=== PATIENT | male | born 1990 | race Caucasian/White ===

== ENCOUNTER 2018-09-29 08:38 | Outpatient (CLI) | payer MEDICARE | END 2018-09-29 08:39 | disposition home or self-care (01) | LOC: CARDIO 08:38 ==

== ENCOUNTER 2018-10-01 12:16 | Emergency (ER) | payer MEDICARE, MEDICAID ==
[2018-10-01 12:27] VITALS: TEMP 98.7; BMI 22.7
[2018-10-01 13:05] LABS: HEMOGLOBIN 15.3 g/dL (14.0-18.0); LYMPH # 1.5 (1.2-3.4); LYMPH % 34.1 % (22.0-35.0); MEAN CELL VOLUME 91.7 fl (80.0-105.0); MEAN CORPUSCULAR HGB CONC 33.8 g/dl (31.0-37.0); MEAN PLATELET VOLUME 11.9 fl (7.0-11.0); MONO # 0.2 (0.1-0.6); MONO % 4.4 % (1.0-6.0); RBC 4.94 10^6/uL (3.5-6.1); RED CELL DISTRIBUTION WIDTH 13.4 % (11.5-14.5); WHITE BLOOD COUNT 4.5 10^3/uL (4.5-11.0)
--- NOTE | 2018-10-01 13:11 | ED PDOC ---
Arrival/HPI - General Chief Complaint: Shortness Of Breath Time Seen by Provider: 10/01/18 12:29 Historian: Patient - History of Present Illness Narrative History of Present Illness (Text): 10/01/18 12:29 Indra Lutz is a 28 year old male, with a past medical history of hypothyroidism (on levothyroxine), sent to the emergency department by Dr. Simpson for pleuritic chest pain since yesterday. Patient notes associated shortness of breath. Pt currently denies chest pain in the ED. Patient denies drug abuse, falls, trauma, back pain, neck pain, heavy lifting, recent travels, fevers, chills, headaches, dizziness, abdominal pain, nausea, vomiting, diarrhea, dysuria, hematuria, or any other complaints. Time/Duration: 24 hours Symptom Onset: Sudden Symptom Course: Unchanged Activities at Onset: Light Context: Home Past Medical History - Provider Review Nursing Documentation Reviewed: Yes - Infectious Disease Hx of Infectious Diseases: None - Tetanus Immunization Tetanus Immunization: Unknown, Up to Date - Cardiac Hx Pacemaker: No - Endocrine/Metabolic Hx Hypothyroidism: Yes - Hematological/Oncological Hx Blood Transfusions: No Hx Blood Transfusion Reaction: No - Musculoskeletal/Rheumatological Hx Musculoskeletal Disorders: No - Gastrointestinal Hx Gastroesophageal Reflux: Yes - Psychiatric Hx Depression: No Hx Emotional Abuse: No Hx Physical Abuse: No Hx Substance Use: No - Surgical History Hx Inguinal Hernia Repair: Yes - Anesthesia Hx Anesthesia: No Hx Anesthesia Reactions: No Hx Malignant Hyperthermia: No - Suicidal Assessment Feels Threatened In Home Enviroment: No Family/Social History - Physician Review Nursing Documentation Reviewed: Yes Family/Social History: Unknown Family HX Smoking Status: Never Smoked Hx Alcohol Use: No Hx Substance Use: No Hx Substance Use Treatment: No Allergies/Home Meds Allergies/Adverse Reactions: Allergies No Known Allergies Allergy (Verified 01/21/13 09:33) Home Medications: Home Meds Medication Instructions Recorded Confirmed Levothyroxine Sodium [Synthroid] 0.2 mg PO DAILY 01/21/13 11/04/13 Review of Systems - Review of Systems Constitutional: absent: Fatigue, Fevers, Other (chills) ENT: absent: Hearing Changes Respiratory: absent: SOB, Cough, Sputum Cardiovascular: Chest Pain (pleuritic). absent: Palpitations, Edema, Calf Pain, Orthopnea, Syncope Gastrointestinal: absent: Abdominal Pain, Constipation, Diarrhea, Nausea, Vomiting Genitourinary Male: absent: Dysuria, Hematuria Musculoskeletal: absent: Back Pain, Neck Pain, Other (falls, trauma, heavy lifting) Neurological: absent: Headache, Dizziness Psychiatric: absent: Anxiety, Depression Physical Exam Vital Signs Reviewed: Yes Vital Signs Temp Pulse Resp BP Pulse Ox 10/01/18 12:45 19 98 10/01/18 12:27 98.7 F 58 L 18 132/69 95 Temperature: Afebrile Blood Pressure: Normal Pulse: Regular Respiratory Rate: Normal Appearance: Positive for: Well-Appearing, Non-Toxic, Comfortable Pain Distress: None Mental Status: Positive for: Alert and Oriented X 3 - Systems Exam Head: Present: Atraumatic, Normocephalic Pupils: Present: PERRL Extroacular Muscles: Present: EOMI Conjunctiva: Present: Normal Mouth: Present: Moist Mucous Membranes Neck: Present: Normal Range of Motion Respiratory/Chest: Present: Clear to Auscultation, Good Air Exchange. No: Respiratory Distress, Accessory Muscle Use, Wheezes, Rales, Rhonchi Cardiovascular: Present: Regular Rate and Rhythm, Normal S1, S2. No: Murmurs, Rub, Gallop Abdomen: Present: Normal Bowel Sounds. No: Tenderness, Distention, Peritoneal Signs, Rebound, Guarding Back: Present: Normal Inspection Upper Extremity: Present: Other (clubbing to fingers) Lower Extremity: Present: Normal Inspection. No: Edema Neurological: Present: GCS=15, CN II-XII Intact, Speech Normal Skin: Present: Warm, Dry, Normal Color. No: Rashes Psychiatric: Present: Alert, Oriented x 3, Normal Insight, Normal Concentration Medical Decision Making ED Course and Treatment: 10/01/18 13:13 EKG shows sinus bradycardia at 59bpm with sinus arrhythmia. Early repolarizati on. Dr. Simpson called and requesting CTA chest to r/o dissection or hereditary abnormality. Requesting observation to tele under his name for further evaluation 10/01/18 13:14 Cxray negative 10/01/18 13:35 CTA negative. - RAD Interpretation Radiology Orders: 10/01/18 12:42 CHEST TWO VIEWS (PA/LAT) [RAD] Stat - EKG Interpretation Interpreted by ED Physician: Yes Type: 12 lead EKG - Medication Orders Current Medication Orders: Discontinued Medications Aspirin (Aspirin Chewable) 324 mg PO STAT STA Stop: 10/01/18 12:47 - Scribe Statement The provider has reviewed the documentation as recorded by the Scribe Davide Vaughn All medical record entries made by the Scribe were at my direction and personally dictated by me. I have reviewed the chart and agree that the record accurately reflects my personal performance of the history, physical exam, medical decision making, and the department course for this patient. I have also personally directed, reviewed, and agree with the discharge instructions and disposition. Disposition/Present on Arrival - Present on Arrival Any Indicators Present on Arrival: No History of DVT/PE: No History of Uncontrolled Diabetes: No Urinary Catheter: No History of Decub. Ulcer: No History Surgical Site Infection Following: None - Disposition Have Diagnosis and Disposition been Completed?: Yes Diagnosis: Chest pain, Pleuritic chest pain Disposition: HOSPITALIZED Disposition Time: 13:13 Patient Plan: Observation Condition: FAIR
--- NOTE | 2018-10-01 13:16 | RAD ---
HISTORY: chest pain COMPARISON: Chest x-ray performed 02/24/12 TECHNIQUE: Chest PA and lateral, 2 views FINDINGS: LUNGS: No focal consolidation. Please note that chest x-ray has limited sensitivity for the detection of pulmonary masses. PLEURA: No significant pleural effusion identified. No definite pneumothorax . CARDIOVASCULAR: Heart size appears within normal limits. OSSEOUS STRUCTURES: No acute osseous abnormality identified. VISUALIZED UPPER ABDOMEN: Unremarkable. OTHER FINDINGS: None. IMPRESSION: No acute findings.
[2018-10-01 13:19] LABS: ALB/GLOB RATIO 1.6 (1.1-1.8); ALBUMIN 4.6 g/dL (3.0-4.8); ALT/SGPT 24 U/L (7-56); AST/SGOT 29 U/L (17-59); BLOOD UREA NITROGEN 10 mg/dL (7-21); CALCIUM 10.2 mg/dL (8.4-10.5); GFR NON-AFRICAN AMERICAN > 60
[2018-10-01 13:30] LABS: B-TYPE NATRIURETIC PEPTIDE 47.9 pg/mL (0-450); TROPONIN I < 0.01 ng/mL
--- NOTE | 2018-10-01 15:30 | CT ---
PROCEDURE: CT Angiography Chest, Abdomen and Pelvis with and without intravenous contrast HISTORY: tearing chest pain, clubbing COMPARISON: None. TECHNIQUE: Contiguous axial images of the chest, abdomen and pelvis were obtained in the phase of aortic enhancement. A noncontrast enhanced CT of the chest was also obtained to evaluate for possible intramural thrombus. Coronal and sagittal reformats were generated. IV dose administered: 150 cc of Omni 350 Radiation dose: Total exam DLP = 745.77 mGy-cm. This CT exam was performed using one or more of the following dose reduction techniques: Automated exposure control, adjustment of the mA and/or kV according to patient size, and/or use of iterative reconstruction technique. FINDINGS: CT ANGIOGRAPHY OF THE CHEST WITH & WITHOUT CONTRAST: AORTA (CHEST AND ABDOMEN): The thoracic and abdominal aorta are unremarkable, without aneurysm, dissection or rupture. No intramural thrombus identified in the thoracic aorta on the non-contrast ct of the chest. The celiac axis, superior mesenteric artery, inferior mesenteric artery and the renal arteries are widely patent. The pelvic arteries are unremarkable. No evidence of pulmonary embolus LUNGS: Clear. No nodule, mass or consolidation. MEDIASTINUM: Unremarkable. Normal caliber aorta and pulmonary arterial trunk. No aortic dissection. Normal size heart. LYMPH NODES: Unremarkable. PLEURA: Unremarkable. No pneumothorax. No pleural fluid. BONES: Unremarkable. OTHER FINDINGS: None. CT ANGIOGRAPHY OF THE ABDOMEN AND PELVIS WITH CONTRAST: LIVER: Unremarkable. No gross lesion or ductal dilatation. GALLBLADDER AND BILE DUCTS: Unremarkable. PANCREAS: Unremarkable. No gross lesion or ductal dilatation. SPLEEN: Unremarkable. ADRENALS: Unremarkable. No mass. KIDNEYS AND URETERS: Unremarkable. No hydronephrosis. No solid mass. VASCULATURE: Unremarkable. No aortic aneurysm. No aortic atherosclerotic calcification or mural plaque present. STOMACH AND BOWEL: Unremarkable. No obstruction. No gross mural thickening. APPENDIX: Normal appendix. PERITONEUM: Unremarkable. No free fluid. No free air. LYMPH NODES: Unremarkable. No enlarged lymph nodes. BLADDER: Unremarkable. REPRODUCTIVE: Unremarkable. BONES: No acute fracture. OTHER FINDINGS: None. IMPRESSION: No evidence of dissection or embolus.
[2018-10-01 16:19] VITALS: BP 132/87; PULSE 67; RESP 18; O2SAT 96
--- NOTE | 2018-10-01 17:31 | CARD ---
APPROVED REPORT Date of service: 10/01/2018 EXAM: Two-dimensional and M-mode echocardiogram with Doppler and color Doppler. INDICATION Abnormal EKG/Arrhythmia Dizziness and Vertigo Chest Pain CLUBBING..R/O PFO BUBBLE STUDY 2D DIMENSIONS RVDd2.7 (2.9-3.5cm)Left Atrium (2D)3.9 (1.6-4.0cm) IVSd0.9 (0.7-1.1cm)LVDd4.6 (3.9-5.9cm) PWd1.1 (0.7-1.1cm)LVDs2.9 (2.5-4.0cm) FS (%) 36.9 %LVEF (%)66.9 (>50%) M-Mode DIMENSIONS Aortic Root3.20 (2.2-3.7cm)Aortic Cusp Exc.2.00 (1.5-2.0cm) Aortic Valve AoV Peak Jugzqezg978.0cm/Katty Peak GR.9mmHg Mitral Valve MV E Xvrnpvtc79.4cm/sMV A Ewovlndt02.3cm/sE/A ratio1.7 TDI Lateral E' Peak V22.10cm/sMedial E' Peak V10.00cm/sE/Lateral E'4.3 E/Medial E'9.4 Pulmonary Valve PV Peak Gsmcaabb11.1cm/sPV Peak Grad.3mmHg Tricuspid Valve TR Peak Ngtyclyj908kg/sRAP [id number] Peak Gr.19mmHg [id number] LEFT VENTRICLE The left ventricle is normal size. There is normal left ventricular wall thickness. The left ventricular function is normal.EF-60-65% There is normal LV segmental wall motion. The left ventricular diastolic function is normal. No left ventricle thrombus noted on this study. There is no ventricular septal defect visualized. There is no left ventricular aneurysm. There is no mass noted in the left ventricle. RIGHT VENTRICLE The right ventricle is normal size. There is normal right ventricular wall thickness. The right ventricular systolic function is normal. ATRIA The left atrium size is normal. The right atrium size is normal. The interatrial septum is intact with no evidence for an atrial septal defect, By color flow and bubble study. AORTIC VALVE The aortic valve is normal in structure. No aortic regurgitation is present. There is no aortic valvular stenosis. There is no aortic valvular vegetation. MITRAL VALVE The mitral valve is thickened but opens well. Mitral regurgitation is trace to mild.(multiple jets) There is no mitral valve stenosis. There is no evidence of mitral valve prolapse. TRICUSPID VALVE The tricuspid valve leaflets are thickened , but open well. There is trace to mild tricuspid regurgitation.([id number]). There is no tricuspid valve stenosis. There is no tricuspid valve prolapse or vegetation. PULMONIC VALVE The pulmonary valve is normal in structure. There is trace pulmonic valvular regurgitation. There is no pulmonic valvular stenosis. GREAT VESSELS The aortic root is normal in size. The ascending aorta is normal in size. The pulmonary artery is normal. The IVC is normal in size and collapses >50% with inspiration. PERICARDIAL EFFUSION There is no pleural effusion. There is no pericardial effusion. <Conclusion> Normal chamber Size. EF-60-65% Mitral regurgitation is trace to mild.(multiple jets) There is trace to mild tricuspid regurgitation.([id number]). There is trace pulmonic valvular regurgitation. The IVC is normal in size and collapses >50% with inspiration. There is no pericardial effusion. The interatrial septum is intact with no evidence for an atrial septal defect, By color flow and bubble study. No vegetation or thrombus noted.
--- NOTE | 2018-10-01 19:35 | CARD ---
APPROVED REPORT Date of service: 10/01/2018 EKG Measurement Heart [id number] <Conclusion> Sinus bradycardia with sinus arrhythmia Early repolarization Otherwise normal ECG
== END 2018-10-01 16:30 | disposition home or self-care (01) ==
LOC: ED 12:16 → UNDOADMOB 13:11 → ERH 13:11 → ED 16:30 → ERH 16:48
DX: R07.81 Pleurodynia (principal); E03.9 Hypothyroidism, unspecified
CPT/HCPCS: 71046; 71275; 74175; 80053; 82550; 83615; 83735; 83880; 84100; 84484; 85025; 85378; 93005; 93306; 99283; Q9967